=== PATIENT | male | born 2000 | race Caucasian/White ===

== ENCOUNTER 2019-08-01 12:43 | Emergency (ER) | payer OTHER, BC ==
[~2019-08-01] VITALS: Ht 177.8 cm; Wt 77.1 kg
[2019-08-01 12:46] VITALS: BP 113/86
--- NOTE | 2019-08-01 13:20 | NUR ---
PT AMBULATED TO ER BED 10
--- NOTE | 2019-08-01 13:40 | NUR ---
PT TAKEN TO CT.
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
[2019-08-01 15:47] VITALS: BP 113/86
--- NOTE | 2019-08-01 15:47 | NUR ---
Patient discharged with v/s stable. Written and verbal after care instructions given and explained. Patient alert, oriented and verbalized understanding of instructions. Ambulatory with steady gait. All questions addressed prior to discharge. ID band removed. Patient advised to follow up with PMD. Rx of norco/atarax given. Patient educated on indication of medication including possible reaction and side effects. Opportunity to ask questions provided and answered.
[2019-08-01 16:27] LABS: BARBITURATE, URINE NEG. ng/ml (NEG <=200); BENZODIAZEPINE, URINE NEG. ng/mL (NEG <=200); CANNABINOID, URINE POS. ng/mL (NEG <=50); COCAINE, URINE NEG. ng/mL (NEG <=300); OPIATE, URINE NEG. ng/mL (NEG <=2000); PHENCYCLIDINE SCREEN,URINE NEG. ng/mL (NEG <=25)
== END 2019-08-01 15:47 | disposition home or self-care (01) ==
LOC: MED 12:43
DX: S20.219A Contusion of unspecified front wall of thorax, initial encounter (principal); F41.9 Anxiety disorder, unspecified; R06.02 Shortness of breath; Z88.1 Allergy status to other antibiotic agents; Z88.8 Allergy status to other drugs, medicaments and biological substances; V89.2XXA Person injured in unspecified motor-vehicle accident, traffic, initial encounter; Y93.89 Activity, other specified; Y92.89 Other specified places as the place of occurrence of the external cause; Y99.8 Other external cause status
CPT/HCPCS: 36600; 71046; 80305; 82803; 93005; 99284